=== PATIENT | female | born 1965 | race Caucasian/White ===

== ENCOUNTER 2019-03-06 13:05 | Emergency (ER) | payer BC ==
[~2019-03-06] VITALS: Ht 152.4 cm; Wt 67.1 kg
[2019-03-06] MEDS ORDERED: LORCET 5-325 M1 EACH PO (13:13)
[2019-03-06 14:12] VITALS: BP 131/86
== END 2019-03-06 14:14 | disposition home or self-care (01) ==
LOC: M.ERS 13:05
DX: G89.29 Other chronic pain (principal); M54.9 Dorsalgia, unspecified